=== PATIENT | female | born 1985 | race Caucasian/White ===

== ENCOUNTER 2024-01-12 13:19 | Outpatient (REF) | payer OTHER, SELFPAY ==
--- NOTE | ~2024-01-12 | US_ITS ---
EXAMINATION: US THYROID CLINICAL INFORMATION: Multinodular goiter. COMPARISON: None available. TECHNIQUE: Linear transducer grayscale and color Doppler examination with attention to the region of the thyroid. FINDINGS: SIZE: Measurements of the thyroid lobes and nodules are given in sagittal, anteroposterior and transverse dimensions respectively. Right Thyroid Lobe: 4.6 x 1.6 x 1.3 cm, volume 4.9 mL. Parenchyma: The gland echotexture is heterogeneous. Thyroid vascularity is normal. Left Thyroid Lobe: 4.6 x 1.1 x 1.8 cm, volume 4.9 mL. Parenchyma: The gland echotexture is heterogeneous. Thyroid vascularity is normal. Isthmus: 0.5 cm in maximum AP dimension. No thyroid nodule or cyst is identified. NODES: No lymphadenopathy is seen in the tissue surrounding the thyroid gland. US/US thyroid IMPRESSION: There is heterogeneous thyroid echotexture, which can be associated with thyroiditis. The examination is otherwise unremarkable. ACR TI-RADS RECOMMENDATION REFERENCE: Ultrasound-guided fine-needle aspiration, followup ultrasound, no further follow up. * TR1 (0 point) and TR2 (2 points): No FNA or follow up. * TR3 (3 points): FNA if more than or equal to 2.5 cm in maximum dimension, followup ultrasound in 1, 3 and 5 years if 1.5 to 2.4 cm in maximum dimension. * TR4 (4-6 points): FNA if more than or equal to 1.5 cm in maximum dimension, followup ultrasound in 1, 2, 3 and 5 years if 1 to 1.4 cm in maximum dimension. * TR5 (more than or equal to 7 points): FNA if more than or equal to 1 cm in maximum dimension, followup ultrasound every year for 5 years if 0.5 to 0.9 cm in maximum dimension. * TR3, TR4 or TR5 nodules that are below the size threshold for followup receive no follow up. Electronically signed by: Rafiq Cosby MD 01/13/2024 10:57 AM EDT
== END 2024-01-12 13:20 | disposition home or self-care (01) ==
LOC: HO.US 13:19
PROVIDERS: PCP Internal Medicine Endocrinology, Diabetes & Metabolism; Visit Provider Internal Medicine Endocrinology, Diabetes & Metabolism
DX: E04.2 Nontoxic multinodular goiter (principal)
CPT/HCPCS: 76536

== ENCOUNTER 2024-02-20 12:22 | Outpatient (REF) | payer OTHER, SELFPAY ==
[2024-02-20 12:39] LABS: MANUAL DIFF FLAG NO
[2024-02-20 14:01] LABS: Basophils Percent Auto 0.4 % (0-2); Eosinophils Absolute Auto 0.1 X10*3/uL (0.0-0.4); Eosinophils Percent Auto 0.8 % (0-4); Hematocrit 39.6 % (37.0-47.0); Imm Gran Abs Auto 0.03 X10*3/uL (0.00-0.03); Imm Gran Pct Auto 0.3 % (0.0-0.4); Lymphocytes Absolute Auto 2.6 X10*3/uL (1.2-4.9); Lymphocytes Percent Auto 25.9 % (20-40); Mean Corpuscular HGB Conc 32.8 g/dl (31.0-35.0); Mean Corpuscular Hemoglobin 28.2 pg (27.0-33.0); Mean Corpuscular Volume 85.9 fL (80.0-98.0); Mean Platelet Volume 10.2 fL (9.4-12.3); Monocytes Absolute Auto 0.5 X10*3/uL (0.1-1.2); Neutrophils Absolute Auto 6.8 x10*3/uL (2.0-8.3); Neutrophils Percent Auto 67.6 % (45-73); Platelet Count 304 X10*3/uL (160-400); Red Blood Count 4.61 X10*6/uL (4.20-5.50); Red Cell Distribution Width 13.4 % (11.0-16.0); White Blood Count 10.1 X10*3/uL (4.8-10.8)
[2024-02-20 14:55] LABS: Ferritin 18 ng/mL (10-122); Free T4 (Free Thyroxine) 1.06 ng/dL (0.71-1.85); Thyroid Stimulating Hormone 1.57 uIU/mL (0.32-4.0)
[2024-02-21 07:42] LABS: DHEA Sulfate 129 mcg/dL (19-237); Triiodothyronine T3 Free 3.1 pg/mL (2.3-4.2)
[2024-02-24 13:13] LABS: Testosterone, Free 2.8 pg/mL (0.1-6.4); Testosterone, Total 25 ng/dL (2-45)
== END 2024-02-20 12:23 | disposition home or self-care (01) ==
LOC: HO.LAB 12:22
PROVIDERS: PCP Internal Medicine; Visit Provider Internal Medicine Endocrinology, Diabetes & Metabolism
DX: E06.3 Autoimmune thyroiditis (principal); L65.9 Nonscarring hair loss, unspecified
CPT/HCPCS: 36415; 82627; 82728; 84402; 84403; 84439; 84443; 84481; 85025

== ENCOUNTER 2024-03-27 13:15 | Outpatient (AMB) | payer OTHER, SELFPAY ==
--- NOTE | 2024-03-27 13:16 | MHC.OFFVIS ---
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 Intake Note: NEW PATIENT Reason; Abd pain, fecal inconsistencies, dysphagia. Prior hx of colo/egd? Neither. Hx of negative H Pylori 02/2023. Concerns/Questions? Pt also reports occasional vertigo. Pt did attempt Co-Q10 last week but stopped after onset of sx. Bloating, GERD sx. 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 Patient was sent to us by her PCP. Chronic GI issues. Patient was seen last year for epigastric pain postprandially and was going to go for upper endoscopy. This was at [facility]. Patient's insurance changed and she has switched to our practice. Patient has on going issues with postprandial abdominal bloating and upper abdominal pain that has been going on for over a year now. Pain as it there mid need. Previously ruled out H pylori. No celiac studies done to patient's knowledge. Occasional postprandial loose stools, however patient reports that unsure if this is related to what she eats as she has been eating same thing every single week. She does admit to be drinking regular milk 1%. She reports that her mom has lactose allergy. No 1st degree family history of colorectal cancer or IBD. Patient denies nausea, dysphagia, odynophagia, melena, hematochezia, hematemesis, unintentional weight loss, loss of appetite or ribbon like stools. Patient denies alcohol tobacco or marijuana use. No history of upper endoscopy or colonoscopy. Patient was supposed to be scheduled for upper endoscopy last year at [facility], however due to her insurance change patient had to cancel procedure. Patient reports that she does not much of foods but she does like vegetables. For protein she eats red meat in chicken PFSH Medical History (Updated 03/27/24 @ 13:25 by Hardeep Johnson [facility]) delivery delivered (~2021) Hypothyroid Review of Systems Const Denies weight gain and Denies weight loss ENT Reports no additional complaints, Reports dysphagia and Denies odynophagia Card Reports no additional complaints Resp Reports no additional complaints GI Denies abdominal pain, Denies belching, Denies melena, Reports bloating, Denies change in bowel habits, Reports dysphagia, Denies excessive flatus, Denies dyspepsia, Denies heartburn, Denies diarrhea, Denies loose stools, Denies nausea, Denies odynophagia and Denies vomiting Reports no additional complaints Musc Reports no additional complaints Neuro Reports no additional complaints Psych Reports no additional complaints Endo Reports no additional complaints Physical Exam Vital Signs: Last Vital Signs Pulse 86 03/27/24 13:28 BP 108/62 03/27/24 13:28 Pulse Ox 97 03/27/24 13:28 Oxygen Delivery Method Room Air 03/27/24 13:28 BMI result Body Mass Index 39.1 Const General: healthy appearing, no acute distress and well developed Nutritional Appearance: well nourished Orientation/consciousness: patient oriented x3 Resp Effort & Inspection: normal respiratory effort, able to speak in complete sentences, no tracheal deviation and symmetric chest movement Auscultation: clear to auscultation bilaterally Cardio Rate: regular rate GI Inspection: Yes normal to inspection and No distended Palpation (GI): Soft to palpation, not firm, nontender and No hepatosplenomegaly present Auscultation: normal bowel sounds General: Yes no CVA tenderness Back/Spine/Pelvis Back: no CVA tenderness Skin General skin exam: elasticity normal, turgor normal and dry skin Neuro General: patient oriented x3 Psych Appearance: grossly normal Mental Status: mental status grossly normal Assessment & Plan Assessment & Plan (1) Postprandial abdominal bloating: Code(s): R14.0 - Abdominal distension (gaseous) (2) GERD (gastroesophageal reflux disease): Code(s): K21.9 - Gastro-esophageal reflux disease without esophagitis Qualifiers: Esophagitis presence: esophagitis presence not specified Qualified Code(s): K21.9 - Gastro-esophageal reflux disease without esophagitis (3) IBS (irritable bowel syndrome): Code(s): K58.9 - Irritable bowel syndrome, unspecified Qualifiers: Irritable bowel syndrome type: with both diarrhea and constipation Qualified Code(s): K58.2 - Mixed irritable bowel syndrome (4) Diarrhea: Code(s): R19.7 - Diarrhea, unspecified Qualifiers: Diarrhea type: functional diarrhea Qualified Code(s): K59.1 - Functional diarrhea (5) Constipation: Code(s): K59.00 - Constipation, unspecified Qualifiers: Constipation type: slow transit constipation Qualified Code(s): K59.01 - Slow transit constipation (6) Dysphagia: Code(s): R13.10 - Dysphagia, unspecified Qualifiers: Dysphagia type: unspecified Qualified Code(s): R13.10 - Dysphagia, unspecified Plan We will rule out celiac, chronic pancreatitis, check CRP to rule out any inflammatory processes if so we will order fecal calprotectin. Will check vitamin B12, folate, vitamin-D level. Will send a message to surgical scheduled to book upper endoscopy and colonoscopy diagnostic colonoscopy for change in bowel pattern, increase diarrhea and abdominal bloating. However we will send patient for upper GI with barium swallow to check for reflux, Schatzki ring, esophageal dysmotility, hiatal hernia. Patient will return in 3 months. She will call our office if she will have concerning GI symptoms. She is agreeable to this plan and verbalizes understanding of instructions. She was given the opportunity to ask questions and all questions answered. Thank you for allowing me to participate in her care Orders: Orders Vitamin B12 and Folate Today R19.7 - Diarrhea, unspecified Vitamin D 25-OH (D2 and D3) Today E55.9 - Vitamin D deficiency, unspecified Transglutaminase IgA Today R10.9 - Unspecified abdominal pain C Reactive Protein Today K58.9 - Irritable bowel syndrome, unspecified FL upper GI w Ba Swallow Today K21.9 - Gastro-esophageal reflux disease without esophagitis TSH reflex Free T4 Today K59.00 - Constipation, unspecified Lipase Today R10.9 - Unspecified abdominal pain Coding Level of Care Code New Pt Level 4 (92714) Diagnoses Postprandial abdominal bloating R14.0 Gastroesophageal reflux disease, unspecified whether esophagitis present K21.9 Esophagitis presence: esophagitis presence not specified Irritable bowel syndrome with both constipation and diarrhea K58.2 Irritable bowel syndrome type: with both diarrhea and constipation Functional diarrhea K59.1 Diarrhea type: functional diarrhea Slow transit constipation K59.01 Constipation type: slow transit constipation Dysphagia, unspecified type R13.10 Dysphagia type: unspecified Time Spent (min) 45 Comment 30 minutes spent with patient and additional 15 minutes spent reviewing her records
[2024-03-27 13:28] VITALS: BP 108/62; PULSE 86; O2SAT 97; BMI 39.1
== END 2024-03-27 13:57 | disposition home or self-care (01) ==
PROVIDERS: PCP Internal Medicine; Visit Provider Nurse Practitioner Family
DX: R14.0 Abdominal distension (gaseous) (principal); K21.9 Gastro-esophageal reflux disease without esophagitis; K58.2 Mixed irritable bowel syndrome; K59.1 Functional diarrhea; K59.01 Slow transit constipation; R13.10 Dysphagia, unspecified
CPT/HCPCS: 99204

== ENCOUNTER → 2024-03-27 13:15 | Outpatient (BNVA) | payer OTHER, SELFPAY | PROVIDERS: PCP Internal Medicine; Visit Provider Nurse Practitioner Family ==

== ENCOUNTER 2024-04-05 15:00 | Outpatient (REF) | payer OTHER, SELFPAY ==
[2024-04-05 15:54] LABS: Hematocrit 38.2 % (37.0-47.0); Hemoglobin 12.5 g/dl (12.0-16.0); Mean Corpuscular HGB Conc 32.7 g/dl (31.0-35.0); Mean Corpuscular Hemoglobin 28.1 pg (27.0-33.0); Mean Corpuscular Volume 85.8 fL (80.0-98.0); Platelet Count 319 X10*3/uL (160-400); Red Blood Count 4.45 X10*6/uL (4.20-5.50); Red Cell Distribution Width 13.9 % (11.0-16.0); White Blood Count 12.8 X10*3/uL (4.8-10.8)
[2024-04-05 16:37] LABS: Lipase 24 U/L (8-78)
[2024-04-05 16:52] LABS: Folate 9.6 ng/mL (> or = 4.0); Vitamin B12 502 pg/mL (200-900)
[2024-04-05 16:53] LABS: TSH reflex Free T4 1.76 uIU/mL (0.32-4.0)
[2024-04-06 20:59] LABS: Transglutaminase IgA <1.0 U/mL
[2024-04-10 12:04] LABS: Vitamin D 25-OH, D2 <4 ng/mL; Vitamin D 25-OH, D3 40 ng/mL; Vitamin D 25-OH, Total 40 ng/mL (30-100)
== END 2024-04-05 15:01 | disposition home or self-care (01) ==
LOC: HO.LAB 15:00
PROVIDERS: PCP Internal Medicine; Visit Provider Nurse Practitioner Family
DX: K58.9 Irritable bowel syndrome, unspecified (principal); K59.00 Constipation, unspecified; R10.9 Unspecified abdominal pain; E55.9 Vitamin D deficiency, unspecified; R19.7 Diarrhea, unspecified; K21.9 Gastro-esophageal reflux disease without esophagitis
CPT/HCPCS: 36415; 82306; 82607; 82746; 83690; 84443; 85027; 86140; 86364

== ENCOUNTER 2024-04-25 08:02 | Outpatient (RCR) | payer OTHER, SELFPAY ==
[2024-04-18 08:06] VITALS: BP 132/68; PULSE 89
== END 2024-04-25 08:46 | disposition home or self-care (01) ==
LOC: HO.PT 08:02
PROVIDERS: PCP Internal Medicine; Visit Provider Internal Medicine Cardiovascular Disease
DX: H81.4 Vertigo of central origin (principal)
CPT/HCPCS: 97112; 97162

== ENCOUNTER 2024-09-09 18:24 | Outpatient (REF) | payer OTHER, SELFPAY ==
--- NOTE | ~2024-09-09 | MR_ITS ---
EXAMINATION: MR BRAIN WITHOUT IV CONTRAST HISTORY: DIZZINESS, GIDDINESS, OTHER FATIGUE AND LIGHT HEADEDNESS TECHNIQUE: Sagittal T1, and axial T1, FLAIR, T2, gradient echo, and diffusion weighted MR images of the brain were obtained. COMPARISON: There are no prior studies available for comparison. FINDINGS: The brain parenchyma is unremarkable, demonstrating normal lópez/white differentiation. No foci of abnormal signal intensity are identified. The pituitary is normal in size. The cerebellar tonsils are normally located. The ventricular system is normal in size and configuration. There is no mass effect or midline shift. No intra or extra-axial fluid collections are identified. There are no foci of restricted diffusion. Normal vascular flow voids are noted in the basilar and carotid arteries. The visualized paranasal sinuses are clear. MR/MR head/brain wo con IMPRESSION: Unremarkable MRI of the brain without contrast. Electronically signed by: Evans Lloyd MD 09/10/2024 09:18 AM EDT
== END 2024-09-09 18:25 | disposition home or self-care (01) ==
LOC: HO.MRI 18:24
PROVIDERS: PCP Internal Medicine; Visit Provider Physician Assistant Medical
DX: R42 Dizziness and giddiness (principal); R53.83 Other fatigue
CPT/HCPCS: 70551

== ENCOUNTER → 2024-09-09 18:36 | Outpatient (BNV) | payer OTHER, SELFPAY | PROVIDERS: PCP Internal Medicine; Visit Provider Radiology Diagnostic Radiology | DX: R42 Dizziness and giddiness (principal); R53.83 Other fatigue; R51.9 Headache, unspecified | CPT/HCPCS: 70551 ==

== ENCOUNTER 2024-12-10 08:05 | Outpatient (AMB) | payer OTHER, SELFPAY ==
--- NOTE | 2024-12-10 08:08 | A.OFFVIS_ITS ---
Vital Signs 12/10/24 08:09 Height 5 ft 6 in Weight 234 lb BMI 37.8 BP 126/64 Blood Pressure Location Rt brachial Position Sitting Pulse 74 Pulse Source Pulse Oximeter Pulse Oximetry (%) 99 Oxygen Delivery Method Room Air Intake Visit Reasons: Pt requested visit. Worsening dysphagia. Intake Note: Est pt for mgmt of chronic abd pain + dysphagia. CC; C.O. dysphagia, GERD, L side abd discomfort exacerbation over the course of the last few weeks. Accompanied by: Self / Same As Patient Allergies adhesive Allergy (Intermediate, Verified 12/10/24 08:09) Rash amoxicillin (From Augmentin) Allergy (Unknown, Verified 12/10/24 08:09) Unknown clavulanic acid (From Augmentin) Allergy (Unknown, Verified 12/10/24 08:09) Unknown HPI HPI Pt requested visit. Worsening dysphagia.: Details: LAST VISIT Postprandial abdominal bloating GERD (gastroesophageal reflux disease) IBS (irritable bowel syndrome) Diarrhea Constipation Dysphagia Plan We will rule out celiac, chronic pancreatitis, check CRP to rule out any inflammatory processes if so we will order fecal calprotectin. Will check vitamin B12, folate, vitamin-D level. Will send a message to surgical scheduled to book upper endoscopy and colonoscopy diagnostic colonoscopy for change in bowel pattern, increase diarrhea and abdominal bloating. However we will send patient for upper GI with barium swallow to check for reflux, Schatzki ring, esophageal dysmotility, hiatal hernia. Patient will return in 3 months. She will call our office if she will have concerning GI symptoms. She is agreeable to this plan and verbalizes understanding of instructions. She was given the opportunity to ask questions and all questions answered. ? Thank you for allowing me to participate in her care Orders Vitamin B12 and Folate Today R19.7 Vitamin D 25-OH (D2 and D3) Today E55.9 Transglutaminase IgA Today R10.9 C Reactive Protein Today K58.9 FL upper GI w Ba Swallow Today K21.9 TSH reflex Free T4 Today K59.00 Lipase Today R10.9 TODAY'S VISIT Patient is here today for requested visit. Patient reports that her symptoms of dysphagia are getting worse. Patient reports that it happens with anything solid and randomly. Sometimes dysphagia happens with liquids. Patient reports that she does not feel like she has reflux. Patient reports epigastric pain, occasional dyspepsia without odynophagia. Patient reports occasional constipation. Denies diarrhea. Left upper quadrant pain and cramping. Patient reports that she is moving her bowels without any issues. Lab results discussed with patient. Patient has not gone for upper GI series. Patient denies any nausea or vomiting. [facility] Medical History (Reviewed 12/10/24 @ 08:09 by Hardeep Johnson [facility]) delivery delivered (~2021) Hypothyroid Review of Systems Const Denies weight gain and Denies weight loss ENT Reports no additional complaints, Reports dysphagia and Denies odynophagia Card Reports no additional complaints Resp Reports no additional complaints GI Reports abdominal pain, Denies belching, Denies melena, Reports bloating, Denies change in bowel habits, Reports constipation, Reports dysphagia, Denies excessive flatus, Denies dyspepsia, Reports heartburn, Denies diarrhea, Denies loose stools, Denies nausea, Denies odynophagia and Denies vomiting Reports no additional complaints Musc Reports no additional complaints Neuro Reports no additional complaints Psych Reports no additional complaints Endo Reports no additional complaints Physical Exam Vital Signs: Last Vital Signs Pulse 74 12/10/24 08:09 BP 126/64 12/10/24 08:09 Pulse Ox 99 12/10/24 08:09 Oxygen Delivery Method Room Air 12/10/24 08:09 BMI result Body Mass Index 37.8 Const General: healthy appearing and no acute distress Nutritional Appearance: obese Orientation/consciousness: patient oriented x3 Resp Effort & Inspection: normal respiratory effort, able to speak in complete sentences, no tracheal deviation and symmetric chest movement Auscultation: clear to auscultation bilaterally Cardio Rate: regular rate GI Inspection: Yes normal to inspection, No distended and Yes obesity Palpation (GI): Soft to palpation, not firm, nontender and No hepatosplenomegaly present Auscultation: normal bowel sounds General: Yes no CVA tenderness Back/Spine/Pelvis Back: no CVA tenderness Skin General skin exam: elasticity normal, turgor normal and dry skin Neuro General: patient oriented x3 Psych Appearance: grossly normal Mental Status: mental status grossly normal Results Reviewed Results Reviewed: Laboratory Tests 04/05/24 15:35 C-Reactive Protein 0.20 Lipase 24 Vitamin B12 502 25-OH Vitamin D Total 40 Folate 9.6 TSH 1.76 Tiss Transglutamin IgA <1.0 Assessment & Plan Assessment & Plan (1) Postprandial abdominal bloating: Code(s): R14.0 - Abdominal distension (gaseous) (2) Gastroesophageal reflux disease: Code(s): K21.9 - Gastro-esophageal reflux disease without esophagitis Qualifiers: Esophagitis presence: esophagitis presence not specified Qualified Code(s): K21.9 - Gastro-esophageal reflux disease without esophagitis (3) Irritable bowel syndrome: Code(s): K58.9 - Irritable bowel syndrome, unspecified Qualifiers: Irritable bowel syndrome type: without diarrhea Qualified Code(s): K58.9 - Irritable bowel syndrome, unspecified (4) Constipation: Code(s): K59.00 - Constipation, unspecified Qualifiers: Constipation type: slow transit constipation Qualified Code(s): K59.01 - Slow transit constipation (5) Dysphagia: Code(s): R13.10 - Dysphagia, unspecified Qualifiers: Dysphagia type: pharyngoesophageal phase Qualified Code(s): R13.14 - Dysphagia, pharyngoesophageal phase Plan Patient will start taking omeprazole. Most likely her dysphagia is related to reflux even though patient feels like she is not experiencing acid reflux. Patient was instructed to go for upper GI series. Will send her for endoscopy. Patient is scheduled for this week. Upper GI series with barium swallow is scheduled in January. Patient is to call central I scheduling to see if they can get her in sooner. Patient was instructed to call us if she w ill have any additional GI concerning symptoms. Encouraged patient not to wait too long if her symptoms are not being controlled with omeprazole. Patient is agreeable to current plan of care and verbalizes understanding of instructions. She was given the opportunity to ask questions and all questions answered. Thank you for allowing me to participate in her care Medications: New omeprazole 20 mg PO DAILY 30 caps 3RF K21.9 - Gastro-esophageal reflux disease without esophagitis Coding Level of Care Code Est Pt Level 4 (94604) Complex EM visit Add On G2211 Diagnoses Postprandial abdominal bloating R14.0 Gastroesophageal reflux disease, unspecified whether esophagitis present K21.9 Esophagitis presence: esophagitis presence not specified Irritable bowel syndrome without diarrhea K58.9 Irritable bowel syndrome type: without diarrhea Slow transit constipation K59.01 Constipation type: slow transit constipation Pharyngoesophageal dysphagia R13.14 Dysphagia type: pharyngoesophageal phase Time Spent (min) 35 Comment 25 minutes spent with patient and additional 10 minutes spent reviewing her records
[2024-12-10 08:09] VITALS: BP 126/64; PULSE 74; O2SAT 99; BMI 37.8
--- OUTSIDE RECORDS SUMMARY | 2024-12-10 08:46 | XMS_ITS | Clinical Summary ---
Author Organization [facility] [address] [facility] lding Address [address] [place] [address] Phone Care Team Providers Care Operations Mgr Name Role Phone Lauren Gilmore MD Primary [...] 8:30 AM EDT Office Visit Adult Medicine [address] [phone] Lauren Matson MD Hypothyroidism, unspecified type (Primary [...] care for your loved ones. For example, early childhood associate or elderly care for an older adult? [...] AM EST Office Visit Adult Medicine - [address] [phone] Lauren Gilmore MD [address] [place] [address] Health Maintenance Due Date Last Done Comments [...] Most Recently Relevant to Health Maintenance Insurance [employer] [facility] Care Teams Operations Mgr Relationship Specialty Start Date End Date Lauren Gilmore MD PCP - General Internal Medicine 11/08/16
--- OUTSIDE RECORDS SUMMARY | 2024-12-10 08:46 | XMS_ITS | Clinical Summary ---
Author Organization [facility] Address [address] [place] [address] Phone Care Team Providers Care Corporate Treasury Analyst Name Role Phone Lauren Gilmore MD Primary [...] from the original note were not included. [facility] Department of Obstetrics & Gynecology [address] [place] [address] GESTATIONAL CARRIER CHECKLIST Name Lety Oswald Date [...] Single & Joint Social Work Appointments, Third Research Mechanic Appointment, Health & Family History Form, Consents [...] 8:20 AM EST Office Visit [facility] [address] [place] [address] [place] [address] Marianna Asencio MD [address] [place] [address] Health Maintenance Due Date Last Done Comments [...] MD LAB BLOOD ORDERABLES F inal Result [address] [phone] from Last 3 Months or Most Recently Relevant to Health Maintenance Insurance [employer] [place] [address] [employer] [place] [employer] [address] Advance Directives For more information, please contact: [phone] (9AM - 5PM [facility], Tuesday-Tuesday) * Full Code (Presumed) (Latest Code Status on File) Date Activated Date Inactivated Comments 04/04/2019 7:11 AM 04/19/2019 6:57 AM Care Teams Corporate Treasury Analyst Relationship Specialty Start Date End Date Lauren Gilmore MD [address] [place] [address] [employer] PCP - General Internal Medicine 09/08/18 Additional Source Comments The information contained in this document represents components of the legal health record. It is not the complete legal health record.[facility]
--- OUTSIDE RECORDS SUMMARY | 2024-12-10 08:46 | XMS_ITS | Clinical Summary ---
Author Organization [employer] [facility] Address [address] [place] [address] Care Team Providers Care Commercial Real Estate Lender Name Role Phone Unavailable Primary Care Provider Unavailabl e Social History Tobacco Use Types Packs/Day Years Used Date Smoking Tobacco: Never Assessed Sex and Gender Information Value Date Recorded Sex Assigned at Not on file Gender Identity Not on file Sexual Orientation Not on file Plan of Treatment Not on file
== END 2024-12-10 08:34 | disposition home or self-care (01) ==
LOC: HO.HGI 08:06
PROVIDERS: PCP Internal Medicine; Visit Provider Nurse Practitioner Family
DX: R14.0 Abdominal distension (gaseous) (principal); K21.9 Gastro-esophageal reflux disease without esophagitis; K58.9 Irritable bowel syndrome, unspecified; K59.01 Slow transit constipation; R13.14 Dysphagia, pharyngoesophageal phase
CPT/HCPCS: 99214

== ENCOUNTER 2024-12-13 08:31 | Day surgery (SDC) | payer OTHER, SELFPAY ==
--- OUTSIDE RECORDS SUMMARY | 2024-12-03 06:32 | XMS_ITS | Clinical Summary ---
Author Organization [facility] Address [address] [place] [address] Care Team Providers Care Business Education Instructor Name Role Phone Unavailable Primary Care Provider Unavailabl e Social History Tobacco Use Types Packs/Day Years Used Date Smoking Tobacco: Never Assessed Sex and Gender Information Value Date Recorded Sex Assigned at Not on file Gender Identity Not on file Sexual Orientation Not on file Plan of Treatment Not on file
--- OUTSIDE RECORDS SUMMARY | 2024-12-03 06:32 | XMS_ITS | Clinical Summary ---
Author Organization [facility] Address [address] [place] [address] Phone Care Team Providers Care Electrical Tech/Project Manager Name Role Phone Lauren Gilmore MD Primary Care Pr ovider Allergies Active Allergy Reactions Criticality Noted Date Comments Amoxicillin-Pot Clavulanate Hives,Itching 09/12 Medications multivit-minerals/f olic acid (MULTIVITAMIN GUMMIES ORAL) Active magnesium oxide 200 mg magnesium Tab Act rusty vitamin D3-vitamin K2 25 mcg (1,000 unit)-90 mcg ODT disintegrating tablet Active biotin 5,000 mcg ODT Take 1,000 mcg by mouth 3 (three) times a day. 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 90 tablet 1 5 Active Active Problems Problem Noted Date Diagnosed Date Hair loss 02/08/2024 Assessment & Plan (02/08/2024 2:43 PM EST): Will include CBC, ferritin & androgens with thyroid function labs. Encounter for procreative ma nagjada and counseling for gestational carrier 04/12/2021 Overview (08/11/2021): Images from the original note were not included. [facility] Department of Obstetrics & Gynecology [address] [place] [id number] GESTATIONAL CARRIER CHECKLIST Name Lety Oswald Date of 1985 Physician Merle Linares MD Agency [facility] Date Match Received 10/22/2020 SCREENING LABS DATE TEST RESULT 11/05/2020 and Delivery Records Reviewed Reviewed/approved by Dr. Merle Linares. 10/13/2020 Pap Smear Negative for Intraepithelial Lesion or Malignancy. HPV negative. 03/18/2021 Intake Screening Completed 12/13/2018 & 05/20/2021 Blood Type & Screen O- & Antibody Screening Negative 05/20/2021 Drug & Nicotine Screening negative 05/20/2021 CMV IgG negative 05/20/2021 CMV IgM negative 05/20/2021 Measles Antibodies IgG 28.2 immune 05/20/2021 TSH 2.30 05/20/2021 Rubella Antibodies IgG 2.32 immune 12/13/2018 Varicella-Zoster Antibodies IgG 486 immune 05/20/2021 Hepatitis B Surface Antigen negative 05/20/2021 Hepatitis B Core Total Antibody negative 05/20/2021 Hepatitis C Virus Antibody negative 05/20/2021 Syphilis Non reactive 05/20/2021 HIV 1/0/2 Antibody negative 05/20/2021 HIV/HCV/HBV SENDY Non reactive 05/20/2021 Chlamydia negative 05/20/2021 Gonococcus negative 05/20/2021 Office Hysteroscopy/Mock 8cm straight 05/20/2021 Psychologist Appointment, Single & Joint Social Work Appointments, Third Head Stock Operator Appointment, Health & Family History Form, Consents Completed. 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 Will hold biotin for 5-7 days & then repeat labs. To call/message via portal if hasn't heard from me with results within 1-2 weeks. Will adjust rx as appropriate. If normal, will repeat yearly. Call/message sooner with symptoms concerning for thyroid levels being off (unexplained change in energy, weight, or bowels or feeling too cold or too warm) or more than 10-15 pound change in weight. Assessment & Plan (02/04/2023 10:57 AM EST): Reports good consistency taking rx appropriately. TSH currently low normal. Given anxiety, will cut back on rx from 7.5/week to 7 tabs/week & repeat labs in 6-8 weeks. To call/message via portal if hasn't heard from me with results within 1-2 weeks. Family History Medical History Relation Comments No Known Problems Father Breast cancer Maternal Aunt Cholecystitis Maternal Grandfather Irritable bowel syndrome Maternal Grandfather Anxiety disorder Maternal Grandmother Depression Maternal Grandmother No Known Problems Mother Heart attack Paternal Grandfather Multiple myeloma Paternal Grandmother Ovarian cancer Neg Hx Uterine cancer Neg Hx Relation Status Comments Father Alive Maternal Aunt Maternal Grandfather Alive Maternal Grandmother Alive Mother Alive Paternal Grandfather Paternal Grandmother Social History Tobacco Use Types Packs/Day Years Used Date Smoking Tobacco: Never Smokeless Tobacco: Never Tobacco Cessation:Counseling Given: Not Answered Alcohol Use Standard Drinks/Week Comments Not Currently 0 (1 standard drink = 0.6 oz pur e alcohol) Education Answer Date Recorded Are you interested in more education? Not on alka e 07/16/2022 Are you concerned about learning? Not on file 07/16/2022 No 07/16/2022 No 07/16/2022 Digital Access Answer Date Recorded No 08/14/2022 No 08/14/2022 Reliable internet access at home? Not on file 08/14/2022 Device with a working camera? Not on file Comments Unknown Sex and Gender Information Value Date Recorded Sex Assigned at Female 05/19/2021 9:03 AM EST Legal Sex Female 9:52 AM EDT Gender Identity Female 05/19/2021 9:03 AM EST Sexual Orientation Straight 05/19/2021 9: 03 AM EST Last Filed Vital Signs Vital Sign Reading Time Taken Comments Blood Pressure 122/84 02/08/2024 9:27 AM EST Pulse 79 02/08/2024 9:27 AM EST Temperature - - Respiratory Rate 18 12/13/2018 10:20 AM EDT Oxygen Saturation 97% 02/04/2023 8:49 AM EST Inhaled Oxygen Concentration - - Weight 109.8 kg (242 lb) 02/08/2024 9:27 AM EST Height 168.3 cm (5' 6.26 ) 02/08/2024 9:27 AM ES T Body Mass Index 38.75 02/08/2024 9:27 AM EST Plan of Treatment Upcoming Encounters Date Type Department Care Team (Late st Contact Info) Description 02/13/2025 8:20 AM EST Office Visit [facility] [address] [place] [address] [place] [address] Marianna Asencio MD [address] [place] [id number] [email or web address] Health Maintenance Due Date Last Done Comments HEPATITIS C SCREENING 12/27/2005 HIV ONE-TIME SCREENING (18-65 YEARS) 12/27/2005 PAP SMEAR 12/27/2008 DEPRESSION SCREENING 12/14/2019 12/13/2018 SCREENING FOR DIABETES 12/27/2022 INFLUENZA VACCINE (#1) 2024 , 01/13/2018, 02/08/2017 COVID-19 VACCINE ( season) 2024 11/04/2020, 10/14/2020 TSH LEVEL 02/24/2025 02/25/2024, 01/19, 10/22/2022, Additional history exists Adult Td,Tdap Booster 05/12/2027 05/12/2017 SMOKING STATUS SCREENING (Once After 26 Yrs) Completed 02/04/2023 HEPATITIS A VACCINES Aged Out No long er eligible based on patient's age to complete this topic HIB VACCINES Aged Out No longer eligi ble based on patient's age to complete this topic MENINGOCOCCAL VACCINES (ACWY) Aged Out No longer eligible based on patient's age to complete this topic MENINGOCOCCAL VACCINES (B) Aged Out N o longer eligible based on patient's age to complete this topic PNEUMOCOCCAL VACCINES (0-49 years) Aged Out No longer eligible based on patient's age to complete this topic Medical Devices Not on file Procedures Procedure Name Priority Date/Time Associated Diagnosis Comments TSH Routine 02/25/2024 2:31 PM EST 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 from Last 3 Months or Most Recently Relevant to Health Maintenance Results * TSH (02/25/2024 2:31 PM EST) Blood Marianna Asencio MD LAB BLOOD ORDERABLES F inal Result [address] [id number] from Last 3 Months or Most Recently Relevant to Health Maintenance Insurance [employer] [place] [address] [employer] [place] [employer] [address] [place] Advance Directives For more information, please contact: [phone] (9AM - 5PM [facility], Tuesday-Tuesday) * Full Code (Presumed) (Latest Code Status on File) Date Activated Date Inactivated Comments 04/04/2019 7:11 AM 04/19/2019 6:57 AM Care Teams Electrical Tech/Project Manager Relationship Specialty Start Date End Date Lauren Gilmore MD [address] [place] [address] FRANK BLANKEN[place] PCP - General Internal Medicine 09/08/18 Additional Source Comments The information contained in this document represents components of the legal health record. It is not the complete legal health record.[facility]
--- OUTSIDE RECORDS SUMMARY | 2024-12-03 06:32 | XMS_ITS | Clinical Summary ---
Author Organization [facility] [address] [facility] lding Address [address] [place] [address] Phone Care Team Providers Care Public Policy Professor Name Role Phone Lauren Gilmore MD Primary Care Prov ider Allergies Active Allergy Reactions Criticality Noted Date Comments Adhesive 02/07/2023 Amoxicillin-Pot Clavulanate Hives Low 01/10/20 19 Medications multivitamin (DAILY VITAMIN ORAL) VITAMIN D-VITAMIN K OR Take by mouth Active magnesium aspart,citrate, oxide (Triple Magnesium Complex) 400 mg magnesium capsule Take 1 capsule by mouth 1 (one) time each day. 01/31/2023 Active levothyroxine sodium (TIROSINT) 88 mcg capsule Take by mouth. Active cholecalciferol , vitD3,/vit K2 (K2-D3 MAX ORAL) Active GENERIC EXTERNAL MEDICATION Collagen peptide Active lactobacillus acidoph-l.bulga r 100 million cell granules in packet Take 1 packet by mouth. Active Active Problems Problem Noted Date Diagnosed Date Rh negative status during 02/03/2024 Hypothyroidism 09/19/2023 Other mixed anxiety disorders 02/07/2023 Ectropion of cervix 03/30/2007 Papanicolaou smear of cervix with atypical squamous cells cannot exclude high grade squamous intraepithelial lesion (ASC-H) 03/30/2007 Blood in stool 10/28/2006 Overview (02/03/2024): Dr. Whyte- pending flexible sigmoidoscopy Encounters Date Type Department Care Team Description 09/11/2024 8:30 AM EDT Office Visit Adult Medicine [address] [address] Lauren Matson MD Hypothyroidism, unspecified type (Primary Dx); Pre-syncope; Other mixed anxiety disorders from Last 3 Months Immunizations Name Administration Dates Next Due Influenza, Unspecified 01/14/2023,02/17/2017 Rubella 01/03/2009 Varicella live (Varivax) 12mo and older 01/04/20 09 Family History Medical History Relation Name Comments Other: Other Maternal Grandfather colitis Stroke Maternal Grandfather Mental illness Maternal Grandmother Depre ssion Mental illness Mother Anxiety Relation Name Status Comments Brother Alive Father Alive Maternal Grandfather Alive Maternal Grandmother Alive Mother Alive Paternal Grandfather Alive Paternal Grandmother Alive Sister Alive Social History Tobacco Use Types Packs/Day Years Used Date Smoking Tobacco: Never Smokeless Tobacco: Never Tobacco Cessation:Counseling Given: No Alcohol Use Standard Drinks/Week Comments No 0 (1 standard drink = 0.6 oz pur e alcohol) Housing Instability Answer Date Recorde d Are you worried that in the next 2 months you may not have stable housing? No 03/30/2024 Food Access & Nutrition Answer Date Rec orded Do you have access to a vari ety of food including fruits and vegetables? Yes 03/30/2024 Access to Healthcare Answer Date Record ed Within the last 3 months, ho w many times did you visit the emergency department for your medical care? 0 03/30/2024 Health Literacy Answer Date Recorded How often do you need to hav e someone help you when you read instructions, pamphlets, or other written material from your doctor or pharmacy? Never 03/30/2024 Caregiver: How often do you need to have someone help you when you read instructions, pamphlets, or other written material from your doctor or pharmacy? Not on file 03/30/2024 Financial Risk Answer Date Recorded How hard is it for you to pa y for the very basics like food, housing, medical care, and air conditioning / heating? Not very hard 03/30/2024 Transportation Answer Date Recorded Has the lack of transportati on kept you from meetings, work, or from getting things needed for daily living? No Has the lack of transportati on kept you from medical appointments or from getting medications? No 03/30/2024 Social Isolation Answer Date Recorded How often do you feel lonely or isolated from th ose around you? Never 03/30/2024 Food Risk Answer Date Recorded Within the past 12 months we worried whether our food would run out before we got money to buy more. Never true 03/30/2024 Within the past 12 months th e food we bought just didn't last and we didn't have money to get more. Never true 03/30/2024 Dependent Care Answer Date Recorded Do you need help finding or paying for care for your loved ones. For example, exceptional children teacher or elderly care for an older adult? No 03/30/2024 Education Answer Date Recorded Do you think completing more education or training, like finishing a GED, going to college, or learning a trade, would be helpful for you? No 03/30/2024 Employment and Income Answer Date Recor ded During the last four weeks, have you been actively looking for work? No 03/30/2024 Living Situation Answer Date Recorded What is your living situation? 0 03/30/2024 Comments No Sex and Gender Information Value Date Recorded Sex Assigned at Not on file Legal Sex Female 3:41 PM EST Gender Identity Not on file Sexual Orientation Not on file Obstetrics History Last Filed Vital Signs Vital Sign Reading Time Taken Comments Blood Pressure 115/84 09/11/2024 8:35 AM EDT Pulse 84 09/11/2024 8:35 AM EDT Temperature 36.7 C (98.1 F) 09/11/2024 8:35 AM EDT Respiratory Rate - - Oxygen Saturation - - Inhaled Oxygen Concentration - - Weight 111 kg (245 lb 6.4 oz) 09/11/2024 8:35 AM EDT Height 167.6 cm (5' 6 ) 03/30/2024 12:53 PM EST Body Mass Index 39.61 03/30/2024 12:53 PM EST Plan of Treatment Upcoming Encounters Date Type Department Care Team (Late st Contact Info) Description 03/18/2025 9:00 AM EST Office Visit Adult Medicine - [address] [phone] Lauren Gilmore MD [address] [place] [address] Health Maintenance Due Date Last Done Comments Hepatitis B Vaccines (1 of 3 - 19+ 3-dose series) 12/27/2006 Cervical Cancer Screening: Pap Smear 03/09/2025 10/13/2020 Postponed from 10/14/2023 (Patient Does Not Have Time) DTaP,Tdap,and Td Vaccines (2 - Td or Tdap) 05/12/2027 05/12/2017 Varicella Vaccines Aged Out 01/03/2009 No longer eligible based on patient's age to complete this topic COVID-19 Vaccine Discontinued 11/04/2020, 10/14/2020 Influenza Vaccine Discontinued 01/14/2023, , 01/13/2018, Additional history exists MMR Vaccines Aged Out 08/12/2023, 01/09/2019 No lo nger eligible based on patient's age to complete this topic Depression Screening Completed 03/29/2024, 01/20/20 Social Influencers of Health Screening Discontinued 03/30/2024 HIB Vaccines Aged Out No longer eligi ble based on patient's age to complete this topic HIV Screening Discontinued HPV Vaccines Aged Out No longer eligi ble based on patient's age to complete this topic Hepatitis A Vaccines Aged Out No long er eligible based on patient's age to complete this topic Hepatitis C Screening Discontinued IPV Vaccines Aged Out No longer eligi ble based on patient's age to complete this topic Meningococcal ACWY Vaccine Aged Out N o longer eligible based on patient's age to complete this topic Meningococcal B Vaccine Aged Out No l onger eligible based on patient's age to complete this topic Pneumococcal Vaccine: Pediatrics (0 to 5 Years) and At-Risk Patients (6 to 49 Years) Aged Out No longer eligible based on patient's age to complete this topic RSV Immunization Patients Under 20 months Aged Out No longer eligible based on patient's age to complete this topic Procedures Procedure Name Priority Date/Time Associated Diagnosis Comments EXTERNAL MRI REPORT 09/10/2024 EXTERNAL MRI REPORT 09/10/2024 DEPRESSION SCREENING Routine 01/19/2023 PAP SMEAR Routine 10/13/2020 from Last 3 Months or Most Recently Relevant to Health Maintenance Results * External MRI Report (09/10/2024) Only the most recent of2 resultswithin the time period is included. Anatomical Region Laterality Modality Magnetic Resonan ce us Provider Katheryn Onbase IMG MRI PROCEDURES Final Result * Depression Screening (01/19/2023) Depression Screening Abstracted us Historical Provider HEALTH MAINTENANCE Final Result * Pap Smear (10/13/2020) Pap smear no interpretation , abstracted Historical Provider HEALTH MAINTENANCE Final Result from Last 3 Months or Most Recently Relevant to Health Maintenance Insurance [employer] [facility] Care Teams Public Policy Professor Relationship Specialty Start Date End Date Lauren Gilmore MD PCP - General Internal Medicine 11/08/16
--- NOTE | 2024-12-11 13:10 | P.CONAN_ITS ---
Documented by User: Zaria Ram NP 12/11/24 13:10 HPI - Anesthesia Eval Consult details Narrative: 38 yr old female for upper endoscopy [facility] Past Medical History Medical History Hypothyroid Surgical History Surgical History Hx of section Social History Social History Are you a primary intensive care unit nurse to a significant other at home: No Do you presently have visiting nurse or other home services: No Patient Tobacco Use Status: Never used Tobacco Meds Allergies Allergy/AdvReac Type Severity Reaction Status Date / Time adhesive Allergy Intermediate Rash Verified 12/13/24 08:57 amoxicillin (From Augmentin) Allergy Unknown Unknown Verified 12/13/24 08:57 clavulanic acid (From Allergy Unknown Unknown Verified 12/13/24 08:57 Augmentin) Home Medications ?Medication ?Instructions ?Recorded ?Confirmed ?Last Taken ?Type calcium 500 mg (as tab PO 03/20/24 Unknown His tory carbonate)-vitamin D3 200 unit-vit K2 90 mcg tablet hydroxyzine HCl 25 mg tablet 25 mg PO BEDTIME 03/20/24 Unknown History levothyroxine 88 mcg capsule 88 mcg PO DAILY 03/20/24 12/11/24 Unknown History magnesium aspart,citrate,oxide mg PO 03/20/24 Unknown History multivitamin 1 tab PO DAILY 03/20/24 Unk nown History Documented by User: Reinier Millard MD 12/13/24 09:05 [facility] Past Medical History Medical History Hypothyroid Functional capacity: independent ambulation Patient : No Family History Family history of problems with anesthesia: No Surgical History Surgical History Hx of section History of Problems with Anesthesia: No Social History Social History Are you a primary intensive care unit nurse to a significant other at home: No Do you presently have visiting nurse or other home services: No Patient Tobacco Use Status: Never used Tobacco Meds Allergies Allergy/AdvReac Type Severity Reaction Status Date / Time adhesive Allergy Intermediate Rash Verified 12/13/24 08:57 amoxicillin (From Augmentin) Allergy Unknown Unknown Verified 12/13/24 08:57 clavulanic acid (From Allergy Unknown Unknown Verified 12/13/24 08:57 Augmentin) Home Medications ?Medication ?Instructions ?Recorded ?Confirmed ?Last Taken ?Type calcium 500 mg (as tab PO 03/20/24 Unknown His tory carbonate)-vitamin D3 200 unit-vit K2 90 mcg tablet hydroxyzine HCl 25 mg tablet 25 mg PO BEDTIME 03/20/24 Unknown History levothyroxine 88 mcg capsule 88 mcg PO DAILY 03/20/24 12/11/24 Unknown History magnesium aspart,citrate,oxide mg PO 03/20/24 Unknown History multivitamin 1 tab PO DAILY 03/20/24 Unk nown History Exam Exam Date and Time: 12/13/24 Airway Mallampati Class: II TM Dist: >3cm Neck ROM: Full Loose/Missing/Broken Teeth: No Heart: RRR Lungs: CTAB vesicular Assessment and Plan Assessment Anesthesia Assessment: Anesthesia Plan Discussed and Chart Reviewed Final Anesthetic Review Family History of Problems with Anesthesia: No History of Problems with Anesthesia: No NPO: Yes ASA Class: II Final Preanesthetic Review: No Changes in Pt Med Stat, Meds/Allgs Chart Reviewed, Consent Obtained/Reviewed and Anes Risks/Benef Reviewed Patient Risk: Low Procedure Risk: Low Anesthetic Plan Anesthetic Plan: MAC: Disposition: Standard PACU
[2024-12-11 15:06] VITALS: BMI 37.8
--- NOTE | 2024-12-13 08:48 | MHC.SHP ---
Pre-Procedural Eval Section A - 24 Hr Update-Section A only Date of Service: 12/13/24 Section B - Complete if H&P > 30 days Chief Complaint: gerd, Relevant Family History (Specify if Yes): No Relevant Social History: None Present Medications: see Short Stay Collaborative assessment Medical History: Significant History (hypothyroid, ) History of Previous Operations: Relevant previous surgery/procedure and date(s) (c section ) Allergies: Allergies Allergy/AdvReac Type Severity Reaction Status Date / Time adhesive Allergy Intermediate Rash Verified 12/10/24 08:09 amoxicillin (From Augmentin) Allergy Unknown Unknown Verified 12/10/24 08:09 clavulanic acid (From Allergy Unknown Unknown Verified 12/10/24 08:09 Augmentin) Review of Systems Sugical H&P ROS: Negative: Constitution, Cardiovascular, Respiratory, Neurological, Psychiatric, Hem-Onc, Allergic/Immunologic, Gastrointestinal, Genitourinary, Musculoskeletal, Integumentary, Endocrine and Eyes/Ears/Nose/Throat Exam Surgical H&P Exam: Normal: HEENT, Normal: Heart, Normal: Lungs, Normal: Extremities, Normal: Abdomen, Normal: Skin and Normal: Neurological Plan Diagnosis/Plan: Unchanged I have reviewed the history and physical and performed a pertinent physical examination on my patient. No changes have occurred unless specified. Time Spent With Patient Time: Total time managing care of this patient today ____ minutes.
[2024-12-13] MEDS: Lactated Ringers 1,000 ML 100 ML IVCONT (08:54)
[2024-12-13 08:56] VITALS: BP 130/93; PULSE 104; RESP 17; TEMP 36.3; O2SAT 99
[2024-12-13 09:00] LABS: UPreg QC Valid YES
--- NOTE | 2024-12-13 09:28 | W.PM.OPN ---
Operative Note Operative Note Date of Service: 12/13/24 Narrative: Procedure Description: EGD Indication: dysphagia Anesthesia: MAC FLEXIBLE TRANSORAL UPPER GASTROINTESTINAL ENDOSCOPY UPPER ENDOSCOPY Consent: Indications for the procedure and potential complications of bleeding, perforation, reaction to medications and missed diagnosis were discussed with the patient and informed consent was obtained. Instrument: Olympus GIF H 190 J mid size upper endoscope Monitoring: Vital signs and clinical assessment, continuous EKG monitoring, Pulse oximetry, Carbon Dioxide monitoring and blood pressure monitoring were done throughout the procedure. Procedure: The patient was placed in the left lateral decubitis position and pre-procedure medications were administered and a bite block was placed. The endoscope was inserted into the mouth and advanced under direct vision to the third part of duodenum. A careful inspection was made as the upper endoscope was withdrawn including a retroflexed examination of the proximal stomach; Findings and interventions are described below. Findings: Larynx:normal Esophagus: GE junction at 37 cm, diaphragm hiatus at 37 cm, mild esphophagitis at GEJ, bx taken also from distal and proximal areas, balloon dilation to 20 mm at UES and LES, no tears seen, Small inlet patch seen Stomach: mild erythema . Biopsies were obtained. Grade 2 flap valve on retroflexed examination of the cardia. Pyloric outlet was tight and balloon dilation done with wire to 20 mm with heme noted Duodenum: Normal bulb and descending duodenum, bx taken Intervention: Biopsies as noted above, wire guided and non wire guided balloon dilation Impression/Findings: tight pylorus inlet patch mild esophagitis and gastritis PLAN: consider increasing PPI, if ongoing sx then manometry GERD precautions
[2024-12-13 09:34] VITALS: BP 124/70; PULSE 108; RESP 12; TEMP 36.2; O2SAT 97
[2024-12-13 09:49] VITALS: BP 133/76; PULSE 78; RESP 16; TEMP 36.1; O2SAT 97
== END 2024-12-13 10:47 | disposition home or self-care (01) ==
PROVIDERS: Nurse Practitioner; PCP Internal Medicine; Visit Provider Internal Medicine Gastroenterology
PROC: 0DJ08ZZ Inspection of Upper Intestinal Tract, Via Natural or Artificial Opening Endoscopic (ICD-10-PCS; CPT 43235; principal; 2024-12-13 11:20)
DX: K21.9 Gastro-esophageal reflux disease without esophagitis (principal); R13.10 Dysphagia, unspecified; R14.0 Abdominal distension (gaseous); K29.70 Gastritis, unspecified, without bleeding; K31.1 Adult hypertrophic pyloric stenosis; K44.9 Diaphragmatic hernia without obstruction or gangrene; K20.80 Other esophagitis without bleeding; Q39.8 Other congenital malformations of esophagus; E03.9 Hypothyroidism, unspecified; Z79.899 Other long term (current) drug therapy; Z88.1 Allergy status to other antibiotic agents; Z88.8 Allergy status to other drugs, medicaments and biological substances; L23.1 Allergic contact dermatitis due to adhesives
CPT/HCPCS: 43245; 43249; 43239; 81025; 88305; 88313; 88342; C1726; J2003; J2704; J3010

== ENCOUNTER → 2024-12-13 08:31 | Outpatient (BNV) | payer OTHER, SELFPAY | PROVIDERS: PCP Internal Medicine; Visit Provider Internal Medicine Gastroenterology | DX: R13.10 Dysphagia, unspecified (principal); K20.90 Esophagitis, unspecified without bleeding; K22.89 Other specified disease of esophagus; K31.1 Adult hypertrophic pyloric stenosis; K29.70 Gastritis, unspecified, without bleeding | CPT/HCPCS: 43245; 43249 ==

== ENCOUNTER 2025-02-25 09:05 | Outpatient (AMB) | payer OTHER, SELFPAY ==
--- NOTE | 2025-02-25 09:06 | A.OFFVIS_ITS ---
Vital Signs 02/25/25 09:14 Height 5 ft 6 in Weight 232 lb BMI 37.4 BP 120/60 Blood Pressure Location Rt brachial Position Sitting Pulse 82 Pulse Source Pulse Oximeter Pulse Oximetry (%) 99 Oxygen Delivery Method Room Air Intake Visit Reasons: egd 12/13 chung Intake Note: Est pt for mgmt of chronic abd pain + dysphagia. S/P EGD CC; C/O reflux persistence at night and into the morning upon waking. Pt states that she is OK throughout the day but is also working on adjusting diet with consideration to reflux. Still experiencing mild dysphagia with certain foods (ie; carbs). Bar Roller Required: No Accompanied by: Self / Same As Patient Allergies adhesive Allergy (Intermediate, Verified 02/25/25 09:07) Rash amoxicillin (From Augmentin) Allergy (Unknown, Verified 02/25/25 09:07) Unknown clavulanic acid (From Augmentin) Allergy (Unknown, Verified 02/25/25 09:07) Unknown HPI HPI egd 12/13 chung: Details: LAST VISIT Postprandial abdominal bloating Gastroesophageal reflux disease Irritable bowel syndrome Constipation Dysphagia Plan Patient will start taking omeprazole. Most likely her dysphagia is related to reflux even though patient feels like she is not experiencing acid reflux. Patient was instructed to go for upper GI series. Will send her for endoscopy. Patient is scheduled for this week. Upper GI series with barium swallow is scheduled in January. Patient is to call [facility] scheduling to see if they can get her in sooner. Patient was instructed to call us if she will have any additional GI concerning symptoms. Encouraged patient not to wait too long if her symptoms are not being controlled with omeprazole. Patient is agreeable to current plan of care and verbalizes understanding of instructions. She was given the opportunity to ask questions and all questions answered. ? Thank you for allowing me to participate in her care New omeprazole 20 mg PO DAILY 30 caps 3RF K21.9 UPPER ENDOSCOPY Findings: Larynx:normal Esophagus: GE junction at 37 cm, diaphragm hiatus at 37 cm, mild esphophagitis at GEJ, bx taken also from distal and proximal areas, balloon dilation to 20 mm at UES and LES, no tears seen, Small inlet patch seen Stomach: mild erythema . Biopsies were obtained. Grade 2 flap valve on retroflexed examination of the cardia. Pyloric outlet was tight and balloon dilation done with wire to 20 mm with heme noted Duodenum: Normal bulb and descending duodenum, bx taken Intervention: Biopsies as noted above, wire guided and non wire guided balloon dilation Impression/Findings: tight pylorus inlet patch mild esophagitis and gastritis PLAN: consider increasing PPI, if ongoing sx then manometry GERD precautions PATHOLOGY RESULTS Diagnosis A. Duodenum, biopsy: Duodenal mucosa within normal limits; preserved villous architecture and no increased intraepithelial lymphocytes seen. B. Stomach, biopsy: Gastric antral mucosa with mild reactive gastropathy; gastric body mucosa within normal limits; negative for Helicobacter pylori, intestinal metaplasia and dysplasia. C. Gastroesophageal junction, biopsy: Squamocolumnar junctional mucosa with mild chronic inflammation; negative for intestinal metaplasia and dysplasia. D. Esophagus, distal, biopsy: Squamous mucosa within normal limits; negative for inflammation (including intraepithelial eosinophils), fungal organisms, intestinal metaplasia and dysplasia. E. Esophagus, proximal, biopsy: Squamous mucosa within normal limits; negative for inflammation (including intraepithelial eosinophils), fungal organisms, intestinal metaplasia and dysplasia TODAY'S VISIT Patient is here today for follow-up and to discuss upper endoscopy results. Tight pylorus, dilation performed. Inlet patch seen. Patient reports that since the procedure she has been taking pantoprazole every day without skipping. Her symptoms of dysphagia have suppressed, however she reports that she will still have trouble swallowing carbs. Patient reports that she had meatloaf last night and this morning she woke up with acid reflux. Patient reports also acid reflux last night. Patient also admits that sometimes when she is more stressed out her symptoms exacerbate. Patient has upper GI series scheduled for May. Patient was encouraged to keep the appointment. Patient reports occasional abdominal bloating. Patient reports that she is moving her bowels without any issues. [facility] Medical History Hypothyroid Surgical History Hx of section Social History Are you a primary critical care registered nurse to a significant other at home: No Do you presently have visiting nurse or other home services: No Patient Tobacco Use Status: Never used Tobacco Review of Systems Const Denies weight gain and Denies weight loss ENT Reports no additional complaints, Reports dysphagia and Denies odynophagia Card Reports no additional complaints Resp Reports no additional complaints GI Reports abdominal pain, Denies belching, Denies melena, Reports bloating, Denies change in bowel habits, Reports constipation, Reports dysphagia, Denies excessive flatus, Denies dyspepsia, Reports heartburn, Denies diarrhea, Denies loose stools, Denies nausea, Denies odynophagia and Denies vomiting Reports no additional complaints Musc Reports no additional complaints Neuro Reports no additional complaints Psych Reports no additional complaints Endo Reports no additional complaints Physical Exam Vital Signs: Last Vital Signs Pulse 82 02/25/25 09:14 BP 120/60 02/25/25 09:14 Pulse Ox 99 02/25/25 09:14 Oxygen Delivery Method Room Air 02/25/25 09:14 BMI result Body Mass Index 37.4 Const General: healthy appearing and no acute distress Nutritional Appearance: obese Orientation/consciousness: patient oriented x3 Resp Effort & Inspection: normal respiratory effort, able to speak in complete sentences, no tracheal deviation and symmetric chest movement Auscultation: clear to auscultation bilaterally Cardio Rate: regular rate GI Inspection: Yes normal to inspection, No distended and Yes obesity Palpation (GI): Soft to palpation, not firm, nontender and No hepatosplenomegaly present Auscultation: normal bowel sounds General: Yes no CVA tenderness Back/Spine/Pelvis Back: no CVA tenderness Skin General skin exam: elasticity normal, turgor normal and dry skin Neuro General: patient oriented x3 Psych Appearance: grossly normal Mental Status: mental status grossly normal Assessment & Plan Assessment & Plan (1) Postprandial abdominal bloating: Code(s): R14.0 - Abdominal distension (gaseous) (2) Gastroesophageal reflux disease: Code(s): K21.9 - Gastro-esophageal reflux disease without esophagitis Qualifiers: Esophagitis presence: esophagitis presence not specified Qualified Code(s): K21.9 - Gastro-esophageal reflux disease without esophagitis (3) Irritable bowel syndrome: Code(s): K58.9 - Irritable bowel syndrome, unspecified Qualifiers: Irritable bowel syndrome type: without diarrhea Qualified Code(s): K58.9 - Irritable bowel syndrome, unspecified (4) Constipation: Code(s): K59.00 - Constipation, unspecified Qualifiers: Constipation type: slow transit constipation Qualified Code(s): K59.01 - Slow transit constipation (5) Dysphagia: Code(s): R13.10 - Dysphagia, unspecified Qualifiers: Dysphagia type: esophageal phase Qualified Code(s): R13.19 - Other dysphagia Plan Patient will continue taking pantoprazole every morning. Avoid dietary triggers and late night snacking could stand up at for minimum 3 hours after meals discussed with patient. Patient will start taking famotidine at bedtime. Patient encouraged to go for upper GI series with barium swallow. Follow-up in the office in 6 months. Patient was encouraged to call us sooner if she will have any GI concerning symptoms. She is agreeable to this plan and verbalizes understanding of instructions. She was given the opportunity to ask questions and all questions answered. Thank you for allowing me to participate in her care Medications: New famotidine (Pepcid) 20 mg PO BEDTIME 90 tabs 3RF K21.9 - Gastro-esophageal reflux disease without esophagitis Refilled pantoprazole take one tablet half an hour before breakfast 40 mg PO DAILY 90 tabs 2RF K21.9 - Gastro-esophageal reflux disease without esophagitis Coding Level of Care Code Est Pt Level 4 (05434) Complex visit Add On G2211 Diagnoses Postprandial abdominal bloating R14.0 Gastroesophageal reflux disease, unspecified whether esophagitis present K21.9 Esophagitis presence: esophagitis presence not specified Irritable bowel syndrome without diarrhea K58.9 Irritable bowel syndrome type: without diarrhea Slow transit constipation K59.01 Constipation type: slow transit constipation Esophageal dysphagia R13.19 Dysphagia type: esophageal phase Time Spent (min) 35 Comment 25 minutes spent with patient and additional 10 minutes spent reviewing records
[2025-02-25 09:14] VITALS: BP 120/60; PULSE 82; O2SAT 99; BMI 37.4
== END 2025-02-25 10:59 | disposition home or self-care (01) ==
LOC: HO.HGI 09:06
PROVIDERS: PCP Internal Medicine; Visit Provider Nurse Practitioner Family
DX: R14.0 Abdominal distension (gaseous) (principal); K21.9 Gastro-esophageal reflux disease without esophagitis; K58.9 Irritable bowel syndrome, unspecified; K59.01 Slow transit constipation; R13.19 Other dysphagia
CPT/HCPCS: 99214